=== PATIENT | male | born 1960 ===

== ENCOUNTER 2017-11-18 15:11 | Emergency (ER) | payer OTHER ==
[~2017-11-18] VITALS: Ht 182.9 cm; Wt 86.2 kg
[2017-11-18 15:18] VITALS: BP 143/84
== END 2017-11-18 16:55 | disposition home or self-care (01) ==
LOC: ED 15:11
DX: S61.213A Laceration without foreign body of left middle finger without damage to nail, initial encounter (principal); W22.8XXA Striking against or struck by other objects, initial encounter; Y93.89 Activity, other specified; Y92.89 Other specified places as the place of occurrence of the external cause; Y99.8 Other external cause status
CPT/HCPCS: 90715; J2001